=== PATIENT | female | born 1980 | race Caucasian/White ===

== ENCOUNTER 2025-07-20 10:40 | Emergency (ER) | payer BC, SELFPAY ==
[2025-07-20 10:48] VITALS: BP 129/80
[2025-07-20 11:55] VITALS: BMI 26.4
[2025-07-20 12:14] LABS: Hematocrit 37.4 % (37.0-47.0); Hemoglobin 13.0 g/dL (12.0-16.0); Mean Corp Hgb Conc. 34.8 g/dL (33.0-37.0); Mean Corpuscular Volume 86.4 fL (81.0-99.0); Nucleated Red Blood Cells % 0 %; Platelet Count 173 10^3/uL (130-400); Red Cell Dist. Width 11.7 % (11.5-14.5)
[2025-07-20 12:27] LABS: HCG, Serum Qualitative Screen Negative
[2025-07-20 12:31] LABS: ALT (SGPT) 21 U/L (0-35); AST (SGOT) 22 U/L (14-36); Albumin 4.0 g/dl (3.5-5.0); Alkaline Phosphatase 62 U/L (38-126); Blood Urea Nitrogen 8 mg/dl (7-17); Calcium 8.9 mg/dl (8.4-10.2); Carbon Dioxide 25 mmol/L (22-30); Chloride 109 mmol/L (98-107); Estimated Creatinine Clearance 109 ml/min; Glucose 105 mg/dl (70-99); Potassium 3.9 mmol/L (3.5-5.1); Sodium 138 mmol/L (135-145); Total Protein 6.8 g/dl (6.3-8.2); eGFR > 60.00
[2025-07-20 12:42] LABS: Urine Character Clear (Clear)
[2025-07-20] MEDS: NSS 1000 IV (13:11)
[2025-07-20 13:17] VITALS: BP 102/62
[2025-07-20 13:38] LABS: COVID-19 Antigen Negative (Negative)
[2025-07-20 14:00] VITALS: BP 111/71
--- NOTE | 2025-07-20 14:02 | ED.GENMED ---
History of Present Illness
General
Chief Complaint: Weakness
Time Seen by Provider: 07/20/25 11:59
History of Present Illness
History of Present Illness:
see MDM
Past History
Past History
ED Past Medical History: Asthma ( exercise induced) and Hypothyroidism
ED Past Surgical History: (X 3) and Gynecological
Social History
Tobacco: Former smoker
Alcohol: Occasional
Drug: None
Personal:
Living: with family
Employment: Employed
Family History
Family History: Other (Noncontributory)
Phy Exam
Physical Exam
Physical Exam:
see MDM
Course
Orders/Labs/Results
Orders:
Orders
07/20/25 02:27
TSH Reflex To Free T4 Urgent
Comment: ADD ON
07/20/25 10:56
EKG [Electrocardiogram (*1)] Urgent
Reason for Study: Fatigue / Weakness
EKG- Treatment ONCE
07/20/25 11:47
Test Result ONCE
07/20/25 11:56
Complete Blood Count/With Diff Urgent
Comprehensive Metabolic Panel Urgent
HCG, Serum Qualitative Screen Urgent
Urinalysis Reflex To Culture Urgent
Date Specimen was Collected: 07/20/25
Time Specimen was Collected: 11:47
07/20/25 12:34
Add On- LAB Urgent
Tests Added?: tsh reflex t4
0.9% Sodium Chloride 1000 ml [Nss] 1,000 ml IV BOLUS
07/20/25 13:10
COVID-19 Antigen Urgent
Source: Nasal Swab
Abnormal Lab Results
07/20/25
11:56
WBC 3.5 L 10^3/uL
(4.8-10.8)
Absolute Lymphs (auto) 1.1 L 10^3/uL
(1.2-3.4)
Chloride 109 H mmol/L
(98-107)
Creatinine 0.5 L mg/dL
(0.6-1.0)
Glucose 105 H mg/dl
(70-99)
07/20/25 11:56
07/20/25 11:56
Vital Signs
Initial and Last Documented VS:
Initial Vital Signs
Temp Pulse BP Pulse Ox
36.8 C 90 129/80 100
07/20/25 10:48 07/20/25 10:48 07/20/25 10:48 07/20/25 10:48
Last Documented Vital Signs
Temp Pulse Resp BP Pulse Ox
36.8 C 67 14 111/71 100
07/20/25 10:48 07/20/25 14:15 07/20/25 14:15 07/20/25 14:00 07/20/25 14:15
MDM/Problems Addressed
Differential Diagnosis Includes:
see MDM
MDM/Problems Addressed:
Note:
CHIEF COMPLAINT(S)
Feeling weak and experiencing polyuria.
HISTORY OF PRESENT ILLNESS
The patient is a 44-year-old female presenting with generalized weakness and fatigue, with tingling in her hands. She reports the onset of these symptoms as being recent, feeling 'really bad, like fatigued,' accompanied by lightheadedness. The
patient denies fever, chills, cough, diarrhea, and vomiting. She mentions experiencing tingling in her arms, numbness, and fatigue, stating, 'I feel wiped out and just like really weak.' Additionally, she experiences occasional dizziness and
describes feeling 'weak in the legs.'
The patient has a recent diagnosis of adrenal insufficiency from endocrine but no treatment has been intiated since. She notes prior episodes of low potassium levels resulting in similar symptoms, and mentions her endocrine evaluation included
cortisol level testing. No treatment plan has been initiated, but she is scheduled for a follow-up appointment in a few weeks. The patient does not recall receiving a potassium supplement but is aware of her condition potentially affecting her
electrolyte balance.
about 2 weeks ago pt had palpitations and had EKG where she worked and says it showed some pauses and extra beats.
The patients thyroid function is managed with [facility] (90 mg). She denies a recent thyroid level test but states her previous results were within the normal range.
The patient consented to COVID testing given her symptoms of dizziness and lightheadedness, acknowledging current widespread incidence.
CHRONIC MEDICAL CONDITIONS SIGNIFICANTLY AFFECTING CARE
Adrenal insufficiency
Recurrent hypokalemia
Thyroid disorder (managed with [facility])
SOCIAL DETERMINANTS AFFECTING HEALTH
The patient reports high stress levels due to working full-time and having caregiving responsibilities for three children at home.
MEDICATIONS
[facility] [facility] 90 mg
REVIEW OF SYSTEMS
- General: Fatigue, generalized weakness
- Cardiovascular: Reports an episode of irregular heartbeat; normal beats with intermittent pauses followed by a double beat
- Endocrine: History of adrenal insufficiency
PHYSICAL EXAM
- Nursing notes reviewed and vital signs reviewed.
GENERAL: Alert , in no apparent distress, looks well
EYE: pupils equal and reactive
NECK: Supple
ENT: o/p clr, mmm.
CARDIAC: Regular rate and rhythm .
LUNGS: Clear breath sounds bilaterally, no acute respiratory distress, no wheezes/rales/rhonchi
ABDOMEN: Soft, without focal tenderness, no r/g, no cvat, normal bowel sounds
NEUROLOGICAL: Alert and oriented, no focal neuro deficits, no weakness
SKIN: Warm and dry, skin intact.
MUSCULOSKELETAL: No edema, well perfused. neg jazmyn's sign
PSYCH: Normal and appropriate interaction.
PROBLEM LIST
Acute Problems:
- Generalized weakness
- Frequent urination
- Dizziness
Chronic Problems:
- Adrenal insufficiency
- Thyroid disorder
- Recurrent hypokalemia
PLAN
1. Perform COVID testing to rule out viral etiology for dizziness and lightheadedness.
2. Initiate intravenous fluid therapy to address dehydration and potential electrolyte imbalance.
3. Re-evaluate electrolyte levels, particularly focusing on potassium and cortisol levels as test results become available.
4. Arrange follow-up to evaluate ongoing management of adrenal insufficiency and confirm treatment plan post-[facility] consultation.
DIFFERENTIAL DIAGNOSIS
The Differential Diagnosis includes, in no particular order and is not limited to:
1. Adrenal insufficiency exacerbation
2. Recurrent hypokalemia
3. Thyroid dysfunction
4. Electrolyte imbalance
5. Viral infection (including COVID-19)
6. Atrial arrhythmia
7. Dehydration
8. Stress-induced fatigue
9. Hypothyroidism
10. Polyuria secondary to other metabolic imbalances.
CARE-UPDATE
07/20/25 - 14:00
Potassium levels are within normal range at 3.9. Electrolytes are stable, no anemia detected, and urine is clear. mild leukopenia but similar to 202, 3.5 today, 3.0 in 2021 without left shift.
Thyroid function test results pending. There was a negative COVID test. No immediate diagnosis from current blood work,he patient has a history of a pituitary adenoma and is undergoing tests to assess its impact. The [facility] has mentioned
subclinical adrenal insufficiency without immediate treatment plans. A follow-up with the [facility] is scheduled in about a month due to appointment availability. Patient advised to contact the [facility] to discuss recent ER visit and
explore the possibility of an earlier consult if necessary.
ACTH was 6.3
but cortisol was normal on her recent testing
she has not started steroids yet
d/w ed attending
*Pulse Oximetry
SaO2: 100
Oxygen Mode of Delivery: Room air
Patient hypoxic: no (100)
*Critical Care Note
Total Time (30-74mins, 75-104mins- exclusive of procedures): Not Applicable
ED Attending Note
-
Portions of this chart may have been created with voice recognition software.� Occasional wrong word or��sound alike� substitutions may have occurred due to the inherent limitations of voice recognition software.
Discharge Plan
Departure
Patient Disposition: Home (Routine Discharge)
Date of Disposition: 07/20/25
Time of Disposition: 14:12
Patient with high blood pressure during this ER visit?: No
Condition: Fair
Covid-19: Negative COVID-19
Discharge Problem:
Fatigue
Instructions: Generalized Weakness (DC)
Prescriptions:
No Action
levothyroxine [Synthroid] 50 MCG tablet
50 mcg PO DAILY
famotidine [Pepcid] 40 MG tablet
40 mg PO BID
19 Chewable Tablet Tab
1 PO DAILY
acetaminophen 325 MG tablet
650 mg PO Q4HPRN PRN (Reason: mild pain) 0RF
sennosides-docusate sodium 1 TABLET tablet
1 tab PO DAILYPRN PRN (Reason: constipation) 0RF
famotidine 20 MG tablet
10 mg PO BID 0RF
levothyroxine 50 MCG tablet
50 mcg PO DAILY AT 0700 0RF
ferrous sulfate [FeroSul] 325 MG tablet
325 mg PO BID 0RF
ibuprofen 600 MG tablet
600 mg PO Q6HPRN PRN (Reason: cramps) Qty: 30 0RF
simethicone [Gas Relief 80 (simethicone)] 80 MG tablet,chewable
80 mg PO TIDPRN PRN (Reason: flatulence) 0RF
cephalexin [Keflex] 500 MG capsule
500 mg PO QID Qty: 28 0RF
potassium chloride 20 MEQ tablet extended release
20 meq PO DAILY Qty: 20 0RF
Referrals:
David Mendoza MD [Family Provider, Family Practice] - Follow up in 2-3 days
Activity Restrictions/Additional Instructions:
Were not sure the cause of your symptoms but your electrolytes were reassuring today. I did send a thyroid test which has not resulted yet, you can follow-up on this with the patient portal but your recent TSH and free T4 were normal from your most
recent blood work.
It is unclear whether this is a symptom of your adrenal issue, you should follow-up with your [facility]. You should tell them that you were in the emergency department, as they may want to bring you in sooner.
Return for severe diarrhea, passing out, severe fatigue, high fever, confusion etc. Otherwise make sure to stay hydrated, take your medications and call your [facility] for closer follow-up
Interventions
Interventions:
*Risk Screen - Suicide Last Done: 07/20/25 10:56
*General Assessment Last Done: 07/20/25 10:56
*Neglect/Abuse Screening Last Done: 07/20/25 10:56
*ED- Fall Risk Assessment Last Done: 07/20/25 14:28
*ED COVID-19 Vaccine History Last Done: 07/20/25 10:56
*Nursing Disposition Last Done: 07/20/25 14:27
ED- Cardiac Assessment Last Done: 07/20/25 12:00
ED- Neurological Assessment Last Done: 07/20/25 12:00
ED- Pulmonary Assessment Last Done: 07/20/25 12:00
Discharge Date and Time
Discharge Date/Time: 07/20/25 14:28
Print Language: GAMBIAN
== END 2025-07-20 14:28 | disposition home or self-care (01) ==
LOC: EMR 10:40
PROVIDERS: Physician Assistant; EMERGENCY PHYSICIAN Emergency Medicine; FAMILY PHYSICIAN Family Medicine
DX: R53.1 Weakness (principal); R42 Dizziness and giddiness; R20.2 Paresthesia of skin; R35.0 Frequency of micturition; R53.83 Other fatigue; E86.0 Dehydration; Z11.52 Encounter for screening for COVID-19; E27.40 Unspecified adrenocortical insufficiency; E87.6 Hypokalemia; D35.2 Benign neoplasm of pituitary gland; E22.9 Hyperfunction of pituitary gland, unspecified; E03.9 Hypothyroidism, unspecified; I49.9 Cardiac arrhythmia, unspecified; J45.998 Other asthma; Z87.891 Personal history of nicotine dependence; Z88.0 Allergy status to penicillin; Z88.1 Allergy status to other antibiotic agents; Z91.040 Latex allergy status
CPT/HCPCS: 99284; 96360; 80053; 81003; 84443; 84703; 85025; 87811; 93005